=== PATIENT | female | born 1935 | race Caucasian/White ===

== ENCOUNTER 2017-04-24 19:01 | Emergency (ER) | payer MEDICARE, OTHER ==
[2017-04-24 19:28] VITALS: BP 153/96
--- NOTE | 2017-04-24 19:42 | EDM.PDOC ---
[id number] 4d ILLNESS Time Seen by Provider: 04/24/17 19:25 Source of Information: Reports: Patient History Limitations: Reports: No Limitations - History of Present Illness INITIAL COMMENTS - FREE TEXT/NARRATIVE: 82-year-old female with a history of polymyalgia rheumatica has had 2 days of increased stiffness and soreness in her upper back and shoulders and is concerned she may be having a recurrence of the syndrome. No fevers or chills, no headache, no shortness of breath or cough, no trauma she knows of. No joint swelling or redness. No insect bites. 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: Musculoskeletal History: Reports: Other (See Below) Other Musculoskeletal History: polymyalgia ,arthralgia Neurological History: Reports: CVA - Infectious Disease History Infectious Disease History: Reports: C-Difficile, Measles, Mumps - Past Surgical History GI Surgical History: Reports: Colonoscopy Social & Family History - Tobacco Use Smoking Status *Q: Never Smoker Second Hand Smoke Exposure: No - Caffeine Use Caffeine Use: Reports: None - Alcohol Use Days Per Week of Alcohol Use: 0 - Recreational Drug Use Recreational Drug Use: No ED ROS GENERAL - Review of Systems Review Of Systems: See Below Constitutional: Denies: Fever, Chills, Malaise Respiratory: Denies: Shortness of Breath 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: Denies: Chest Pain GI/Abdominal: Denies: Abdominal Pain, Nausea, Vomiting Skin: Reports: No Symptoms. Denies: Rash Neurological: Denies: Headache Psychiatric: Reports: No Symptoms ED EXAM, GENERAL - Physical Exam Exam: See Below Exam Limited By: No Limitations General Appearance: Alert, No Apparent Distress Eye Exam: Bilateral Eye: Normal Inspection Neck: Normal Inspection, Supple, Non-Tender Respiratory/Chest: No Respiratory Distress, Lungs Clear 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: Regular Rate, Rhythm Back Exam: Paraspinal Tenderness (Patient has a small amount of paraspinal tenderness in the upper thoracic and cervical area to palpation, a small amount of increased pain with rotation against resistance) Course - Vital Signs Last Recorded V/S: Last Vital Signs Temp 97.6 F 04/24/17 19:23 Pulse 102 H 04/24/17 19:23 Resp 16 04/24/17 19:23 BP 153/96 H 04/24/17 19:23 Pulse Ox 98 04/24/17 19:23 - Orders/Labs/Meds Labs: Laboratory Tests 04/24/17 Range/Units 19:44 ESR 22 (0-25) mm/hr - Re-Assessments/Exams Free Text/Narrative Re-Assessment/Exam: 04/24/17 19:42 A sedimentation rate was obtained. If high we will consider some prednisone therapy, if normal I think watchful waiting would be reasonable. 04/24/17 20:28 Sedimentation rate is 22. Patient was reassured reassured this is very unlikely a resurgence of polymyalgia rheumatica. She will recheck in 2-3 days if not improving. Departure - Departure Time of Disposition: 20:40 Disposition: Home, Self-Care 01 Condition: Good Clinical Impression: Upper back strain Qualifiers: Encounter type: initial encounter Qualified Code(s): S29.012A - Strain of muscle and tendon of back wall of thorax, initial encounter - Discharge Information Instructions: Thoracic Strain, [id number] Referrals: PCP,None [Primary Care Provider] - Forms: ED Department Discharge Care Plan Goals: Increase activity as tolerated, Tylenol may help and recheck if worsening.
== END 2017-04-24 20:39 | disposition home or self-care (01) ==
LOC: JP.ED 19:01
DX: S29.012A Strain of muscle and tendon of back wall of thorax, initial encounter (principal); Z86.73 Personal history of transient ischemic attack (TIA), and cerebral infarction without residual deficits; Z79.01 Long term (current) use of anticoagulants; X58.XXXA Exposure to other specified factors, initial encounter
CPT/HCPCS: 36415; 85651; 99282; 99284

== ENCOUNTER 2018-12-20 19:31 | Emergency (ER) | payer MEDICARE, OTHER ==
[2018-12-20] MEDS ORDERED: Oxymetazoline 0.05% Nasal Spray 15 ML Bottle NAS ONE (20:35)
--- NOTE | 2018-12-20 20:41 | EDM.PDOC ---
ED HPI GENERAL MEDICAL PROBLEM - General Chief Complaint: ENT Problem Stated Complaint: NOSEBLEED/FALL Time Seen by Provider: 12/20/18 20:36 Source of Information: Reports: Patient History Limitations: Reports: No Limitations - History of Present Illness INITIAL COMMENTS - FREE TEXT/NARRATIVE: pt fell and hit her nose. She did not hit her nose and she was not knocked out. She was seen in urgent care and a rhino rocket was placed in the rt nostril. She has no bleeding coming from the rt side. The left side has a little ozzing. She did have a nasal film which did show a fracture of the nasal bone with minimal displacement. Onset: Today, Other ( pt fell mid afternoon. 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: Reports: Other (see below) Other Treatments SUPPORT MERCHANDISER: rhino rocket Nose Pain Score (Numeric/FACES): 4 - Related Data Allergies Allergy/AdvReac Type Severity Reaction Status Date / Time No Known Allergies Allergy Verified 12/20/18 20:12 Home Meds: Home Meds Warfarin Sodium 1.5 tab PO ASDIRECTED 02/13/14 [History] amLODIPine Besylate [Amlodipine Besylate] 1 tab PO DAILY 02/13/14 [History] Warfarin Sodium 2 mg PO ASDIRECTED 04/24/17 [History] Past Medical History HEENT History: Reports: Impaired Vision 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 History: Reports: Afib 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: Musculoskeletal History: Reports: Other (See Below) Other Musculoskeletal History: polymyalgia ,arthralgia Neurological History: Reports: CVA - Infectious Disease History Infectious Disease History: Reports: Chicken Pox - Past Surgical History GI Surgical History: Reports: Colonoscopy Social & Family History - Tobacco Use Smoking Status *Q: Never Smoker - Caffeine Use Caffeine Use: Reports: Coffee - Recreational Drug Use Recreational Drug Use: No ED ROS ENT - Review of Systems Review Of Systems: See Below Constitutional: Reports: No Symptoms HEENT: Reports: Nosebleed, Other (pt has a nasal fracture. She has a rhinorocket in the rt side and she is ozzing from the left. She has a minimally displaced fracture of the nasal bone. ) Respiratory: Reports: No Symptoms 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: Reports: No Symptoms Endocrine: Reports: No Symptoms GI/Abdominal: Reports: No Symptoms : Reports: No Symptoms Musculoskeletal: Reports: No Symptoms Skin: Reports: No Symptoms Neurological: Reports: No Symptoms Psychiatric: Reports: No Symptoms ED EXAM, ENT - Physical Exam Exam: See Below Text/Narrative:: pt arrived with a rhino rocket in the rt nare after a fall and a undisplaced fracture in the nasal bone. She is now dripping slightly from the left nare. Exam Limited By: No Limitations General Appearance: Alert, Mild Distress, Other (pupils equal and reactive. ) Ears: Normal TMs Nose: Other ( the rhino rocket is in the rt nare. There is light driopping from the rt nare. ) Mouth/Throat: Normal Inspection Course - Vital Signs Last Recorded V/S: Last Vital Signs Temp 35.9 C 12/20/18 21:09 Pulse 69 12/20/18 21:23 Resp 12 12/20/18 21:23 BP 145/82 H 12/20/18 21: Pulse Ox 96 12/20/18 21:23 - Orders/Labs/Meds Labs: Laboratory Tests 12/20/18 Range/Units 20:49 PT 25.1 H (9.5-12.0) sec INR 2.40 H (0.80-1.20) Meds: Medications Discontinued Medications Generic Name Dose Route Start Last Admin Trade Name Verónica PRN Reason Stop Dose Admin Oxymetazoline HCl 1 ml 12/20/18 20:35 12/20/18 20:45 Afrin Original 0.05% Nasal [place] SUAD 12/20/18 20:36 2 spray ONETIME ONE Administration - Re-Assessments/Exams Free Text/Narrative Re-Assessment/Exam: 12/20/18 21:43 afrin spray was put in the rt nare so it got quite posterior. She has been watched and there is very little bleeding. She should use this 3-4 times daily. If she should have oozing she can put a small pack with kleeix Departure - Departure Time of Disposition: 21:45 Disposition: Home, Self-Care 01 Condition: Fair Clinical Impression: Nasal fracture, Nosebleed - Discharge Information Referrals: Kenton Soriano MD [Primary Care Provider] - Forms: ED Department Discharge Care Plan Goals: appt will be scheduled to see Dr Meléndez on Dec 26 at the clinic, leave pavking in for 2 days until sat. If there is oozing in the rt nare use a small pack in the nare. use the afrin spray in the rt nare 3-4 times daily. Return if this should get worse.
[2018-12-20 21:50] VITALS: BP 152/75
== END 2018-12-20 22:25 | disposition home or self-care (01) ==
LOC: JP.ED 19:31
DX: S02.2XXA Fracture of nasal bones, initial encounter for closed fracture (principal); R04.0 Epistaxis; I48.91 Unspecified atrial fibrillation; Z79.01 Long term (current) use of anticoagulants; Z79.899 Other long term (current) drug therapy; X58.XXXA Exposure to other specified factors, initial encounter
CPT/HCPCS: 36415; 85610; 99284; A9270

== ENCOUNTER 2018-12-22 11:05 | Emergency (ER) | payer MEDICARE ==
[2018-12-22 11:27] VITALS: BP 144/88
--- NOTE | 2018-12-22 11:43 | EDM.PDOC ---
<Hannah Munson N - Last Filed: 12/22/18 11:37> ED HPI GENERAL MEDICAL PROBLEM - General Chief Complaint: ENT Problem Stated Complaint: REMOVE NOSE BANDAGE Time Seen by Provider: 12/22/18 11:23 Source of Information: Reports: Patient History Limitations: Reports: No Limitations - History of Present Illness INITIAL COMMENTS - FREE TEXT/NARRATIVE: Elizabeth is an 83-year-old female who presents to the ER for removal of the rapid rhino in her right nares. Reports that she feel 2 days ago and sustained a nasal fracture. She had a Rapid Rhino inserted at that time. Reports a small amount of oozing from the site up until this morning. Has not noticed any drainage down the back of her throat. She has been feeling well otherwise. Appointment made to follow up with ENT next Monday. - Related Data Allergies Allergy/AdvReac Type Severity Reaction Status Date / Time No Known Allergies Allergy Verified 12/22/18 11:21 Home Meds: Home Meds Warfarin Sodium 1.5 tab PO ASDIRECTED 02/13/14 [History] amLODIPine Besylate [Amlodipine Besylate] 1 tab PO DAILY 02/13/14 [History] Warfarin Sodium 2 mg PO ASDIRECTED 04/24/17 [History] Past Medical History HEENT History: Reports: Impaired Vision Other HEENT History: 12/20/18 Nasal fracture mild displacement from fall. 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 Denies: Rhinitis Respiratory: Reports: No Symptoms. Denies: Shortness of Breath 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: Reports: No Symptoms. Denies: Chest Pain Neurological: Reports: No Symptoms. Denies: Confusion, Headache, Weakness ED EXAM, ENT - Physical Exam Exam: See Below Text/Narrative:: Rapid rhino in place. Small amount of dried blood noted after removal. No sandro bleeding. No polyps or septal hematoma. Some ongoing swelling over nasal bone. Exam Limited By: No Limitations General Appearance: Alert, WD/WN, No Apparent Distress Eye Exam: Right Eye: Other (Subconjunctival hemorrhage; ecchymosis around the right eye), Bilateral Eye: Normal Inspection, PERRL Nose: Septal Deformity, Dried Blood. No: Septal Hematoma, Active Bleeding Mouth/Throat: Normal Inspection, Normal Lips, Normal Oropharynx. No: Bleeding, Dry Mucous Membrane, Tonsillar Erythema, Tonsillar Swelling Head: Atraumatic Respiratory/Chest: No Respiratory Distress, Lungs Clear, Normal Breath Sounds, No Accessory Muscle Use, Chest Non-Tender 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: Normal Peripheral Pulses, Regular Rate, Rhythm, No Gallop, No Rub Neurological: Alert, Oriented, Normal Cognition, No Motor/Sensory Deficits Psychiatric: Normal Affect, Normal Mood Course - Vital Signs Last Recorded V/S: Last Vital Signs Temp 36.0 C 12/22/18 11:26 Pulse 85 12/22/18 11:26 Resp 14 12/22/18 11:26 BP 144/88 H 12/22/18 11:26 Pulse Ox 97 12/22/18 11:26 Departure - Departure Disposition: Home, Self-Care 01 Clinical Impression: Encounter for removal of nasal packing, Nasal fracture - Discharge Information Instructions: Nasal Fracture, [id number] Referrals: PCP,None [Primary Care Provider] - Forms: ED Department Discharge Care Plan Goals: keep appt with ENT for wed, use the afrin drops tid in left nostril for the next 2-3 days, cool mist humidifier, avoid alot of bending or rigorous activity <Lala Mcmanus - Last Filed: 12/23/18 07:26> ED ROS ENT - Review of Systems Review Of Systems: See Below ED EXAM, ENT - Physical Exam Exam: See Below Departure - Departure Time of Disposition: 11:49 Condition: Fair
== END 2018-12-22 12:07 | disposition home or self-care (01) ==
LOC: JP.ED 11:05
DX: Z48.00 Encounter for change or removal of nonsurgical wound dressing (principal); S02.2XXA Fracture of nasal bones, initial encounter for closed fracture; Z79.01 Long term (current) use of anticoagulants; Z79.899 Other long term (current) drug therapy; X58.XXXA Exposure to other specified factors, initial encounter
CPT/HCPCS: 99283